=== PATIENT | male | born 1990 | race Caucasian/White ===

== ENCOUNTER 2022-05-25 21:43 | Emergency (ER) | payer OTHER ==
[2022-05-25 23:20] LABS: CARBON DIOXIDE,CO2 32.4 mmol/L (21.0-32.0); POTASSIUM,K 2.9 mmol/L (3.5-5.1)
[2022-05-26] MEDS ORDERED: Ketorolac 30 MG/ML SDV IM ONE (00:26)
[2022-05-26] MEDS ORDERED: Ketorolac 30 MG/ML SDV IVPUSH ONE (00:38)
== END 2022-05-26 00:49 | disposition home or self-care (01) ==
LOC: MW.ED 21:43
DX: N45.1 Epididymitis (principal); F17.210 Nicotine dependence, cigarettes, uncomplicated; Z79.899 Other long term (current) drug therapy
CPT/HCPCS: 36415; 76870; 80048; 81001; 85025; 93976; 96374; 99284; J1885; 99283